=== PATIENT | female | born 1980 | race Caucasian/White ===

== ENCOUNTER 2017-12-30 23:47 | Emergency (ER) | payer OTHER ==
[~2017-12-30] VITALS: Ht 170.2 cm; Wt 63.5 kg
--- NOTE | 2017-12-31 00:26 | ED DYSPNEA/ASTHMA COMPLAINT ---
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 Source: patient Exam Limitations: no limitations Vital Signs & Intake/Output Vital Signs & Intake/Output Vital Signs Date Time Temp Pulse Resp B/P B/P Pulse O2 O2 Flow FiO2 Mean Ox Delivery Rate 12/31 0109 99 Room Air 12/31 0108 79 19 133/82 99 Room Air 12/31 0002 97.9 69 20 121/85 97 Room Air Allergies Coded Allergies: Penicillins (Intermediate, HIVES 12/31/17) Reconcile Medications Albuterol Sulfate (Proair Hfa) 90 MCG HFA.AER.AD 2 PUF INH Q4-6 PRN PRN ASTHMA Triage Note: TRIAGE: PATIENT TO ER FROM HOME REPORTING +NASAL CONGESTION AND DIP DYER COUGH "VERY DEEP IN THERE" SINCE APPROX SATURDAY. PATIENT REPORTS "FELT LIKE FEVER SATURDAY." AFEBRILE IN TRIAGE. PATIENT REPORTING SHALLOW BREATHS, UNABLE TO TAKE DEEP BREATH. SPEAKING QUIETLY W/ CLEAR SPEECH/ FULL SENTENCES IN TRIAGE. Triage Nurses Notes Reviewed? yes : No Patient currently breastfeeds: No HPI: Patient presents complaining of chest tightness, wheezing and a productive cough that started earlier this evening. Patient has a history of intermittent asthma but she is concerned because her inhaler expiration date has passed. Patient denies any fevers or chills. There is no orthopnea. There is no dyspnea on exertion. Past History Travel History Traveled to [place] past 21 day No Medical History Any Pertinent Medical History? 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 No Review of Systems Review of Systems Constitutional: Reports: no symptoms. Respiratory: Reports: see HPI, cough, short of breath, wheezing. Cardiovascular: Reports: see HPI, chest pain. GI: Reports: no symptoms. Musculoskeletal: Reports: no symptoms. Neurological/Psychological: Reports: no symptoms. Immunologic/Allergic: Reports: no symptoms. Physical Exam Physical Exam General Appearance: well developed/nourished, alert, awake, anxious, mild distress Head: atraumatic, normal appearance Eyes: Bilateral: PERRL, EOMI. Neck: normal inspection, supple, full range of motion Respiratory: decreased breath sounds, wheezing, respiratory distress Cardiovascular: regular rate/rhythm, normal peripheral pulses Gastrointestinal: normal bowel sounds, soft, non-tender, no organomegaly Extremities: normal inspection, normal capillary refill, normal range of motion, no edema Neurologic/Psych: no motor/sensory deficits, awake, alert, oriented x 3, normal gait, normal mood/affect Skin: intact, normal color, warm/dry Lymphatic: no anterior cervical pam Core Measures ACS in differential dx? No CVA/TIA Diagnosis No Sepsis Present: No Sepsis Focused Exam Completed? No Progress Differential Diagnosis: asthma, bronchitis, pneumonia Plan of Care: Orders Procedure Date/time Status XRY-CHEST XRAY, TWO VIEWS 12/31 25 Active Current Medications Sig/Brain Start time Last Medication Dose Stop Time Status Admin Albuterol Sulfate 3 ML ONCE ONE 12/31 29 UNVr (Proventil) 12/31 30 Ipratropium Hobbs 2.5 ML ONCE ONE 12/31 29 UNVr (Atrovent) 12/31 30 Diagnostic Imaging: Viewed by Me: Radiology Read. Discussed w/RAD: Radiology Read. CXR Impression: PATIENT: MITZY HOUSE PRESENT AGE: 37 PATIENT ACCOUNT NO: [id number] : 82 LOCATION: [facility] [place] ORDERING PHYSICIAN: Stewart Yeung MD SERVICE DATE: 12/31/17 EXAM TYPE: RAD - XRY-CHEST XRAY, TWO VIEWS EXAMINATION: XR CHEST CLINICAL INFORMATION: Pneumonia COMPARISON: 01/14/2008 TECHNIQUE: 2 views of the chest were obtained. FINDINGS: Lung volumes are symmetric. No focal consolidation is seen. No evidence of pneumothorax, pleural effusion, or pulmonary edema. The cardiomediastinal contour is unremarkable. No acute osseous findings are seen. IMPRESSION: No focal consolidation. DICTATED BY: Artem Rubio MD DATE/TIME DICTATED:12/31/1756 COSTUME DIRECTOR:XIAO DATE/TIME TRANSCRIBED:56 CONFIDENTIAL, DO NOT COPY WITHOUT APPROPRIATE AUTHORIZATION. < Electronically signed in Other Vendor System> SIGNED BY: Artem Rubio MD 12/31/17 0102 Initial ED EKG: none Departure Departure Disposition: HOME OR SELF CARE Condition: Stable Clinical Impression Primary Impression: Asthma Referrals: Omayra Trinh MD (PCP/Family) Additional Instructions: Use inhaler as needed. Return if symptoms worsen or for any concerns. Departure Forms: Customer Survey General Discharge Information Prescriptions: Current Visit Scripts Albuterol Sulfate (Proair Hfa) 2 PUF INH Q4-6 PRN PRN ASTHMA #1 INHAL Critical Care Note Critical Care Note Critical Care Time: non-applicable
--- NOTE | 2017-12-31 01:02 | RADIOLOGY REPORT ---
EXAMINATION: XR CHEST CLINICAL INFORMATION: Pneumonia COMPARISON: 01/14/2008 TECHNIQUE: 2 views of the chest were obtained. FINDINGS: Lung volumes are symmetric. No focal consolidation is seen. No evidence of pneumothorax, pleural effusion, or pulmonary edema. The cardiomediastinal contour is unremarkable. No acute osseous findings are seen. IMPRESSION: No focal consolidation.
[2017-12-31 01:08] VITALS: BP 133/82
[2017-12-31] MEDS ORDERED: PROAIR HFA8.5 GM INH (01:23)
== END 2017-12-31 01:29 ==
LOC: ERH 23:47
DX: J45.909 Unspecified asthma, uncomplicated (principal); F17.210 Nicotine dependence, cigarettes, uncomplicated; R07.89 Other chest pain
CPT/HCPCS: 1263; 71046